=== PATIENT | male | born 1985 | race Caucasian/White ===

== ENCOUNTER 2017-05-29 19:28 | Emergency (ER) | payer OTHER ==
[~2017-05-29] VITALS: Ht 175.3 cm; Wt 114.3 kg
[~2017-05-29 19:28] MED LIST: ALPR.5 PO; BYST5TAB2 PO; DOXE50CA3 PO
[2017-05-29 19:34] VITALS: BP 161/77; PULSE 93; RESP 18; TEMP 98.4; O2SAT 99
[2017-05-29] MEDS ORDERED: TETANUS/DIPHTHERIA TOXOID ADULT 0.5 ML VIAL IM ONE (20:30)
[2017-05-29] MEDS ORDERED: CLINDAMYCIN 150 MG CAP PO ONE (20:30)
[2017-05-29] MEDS ORDERED: IBUPROFEN 800 MG TAB PO ONE (20:30)
[2017-05-29] MEDS ORDERED: CLIN300C5 PO (20:37)
--- NOTE | 2017-05-29 20:38 | PD ---
HPI Chief Complaint: Bite or Sting Time Seen by Provider: 20:08 Travel History International Travel<30 days: No Contact w/Intl Traveler<30days: No Traveled to known affect area: No History of Present Illness HPI 31 -year-old male here for evaluation of dog bite to the right upper extremity. Patient has 2 lacerations to the distal/medial aspect of the forearm and palm. Both wounds measure approximately 2 cm. He reports normal sensation and full range of motion of the wrist and hand. Bleeding well controlled. Injury occurred prior to arrival. Dog's immunizations are up-to-date. Tetanus immunization a patient unknown [facility] Past Medical History Anxiety: Yes Depression: Yes Cancer: No Cardiovascular Problems: No Diminished Hearing: No Diverticulitis: Yes Endocrine: No Gastrointestinal Disorders: Yes GERD: Yes Genitourinary: No Hypertension: Yes Musculoskeletal: No Neurologic: No Psychiatric: Yes Reproductive: No Respiratory: No Immunizations Current: Yes Tetanus Vaccination: > 5 Years Influenza Vaccination: No Past Surgical History Surgical History: No Previous Surgery Other Surgery: Yes (ENDOSCOPY/COLONOSCOPY) Social History Alcohol Use: Yes (RARELY) Tobacco Use: No Substance Use: Yes (MARIJUANA DAILY;previous) Allergies-Medications (Allergen,Severity, Reaction): Coded Allergies: amoxicillin (Unverified Allergy, Severe, Hives, 05/29/17) penicillin G (Unverified Allergy, Severe, Hives, 05/29/17) Reported Meds & Prescriptions Reported Meds & Active Scripts Active Clindamycin (Clindamycin HCl) 300 Mg Cap 300 Mg PO Q6H 10 Days Doxepin (Doxepin HCl) 50 Mg Cap 50 Mg PO BID Bystolic (Nebivolol) 5 Mg Tab 5 Mg PO DAILY Reported Xanax (Alprazolam) 0.5 Mg Tab 0.5 Mg PO Q6H PRN Review of Systems Except as stated in HPI: all other systems reviewed are Neg Physical Exam Narrative GENERAL: Alert male in mild distress SKIN: 2 lacerations to the right upper extremity length on the distal medial aspect of the forearm the other on the palm. Both measure less than 2 cm. Wound edges well approximated. No tendon or vascular injury. Patient is able to flex and extend the wrist and all fingers. Normal sensation. 2+ radial pulse. Brisk cap refill. HEAD: Normocephalic. EYES: No injection or drainage. NECK: Supple, trachea midline. MUSCULOSKELETAL: No cyanosis, or edema. 2 lacerations to the right upper extremity. See above note. Data Data Last Documented VS Vital Signs Date Time Temp Pulse Resp B/P (MAP) Pulse Ox O2 Delivery O2 Flow Rate FiO2 05/29/17 19:34 98.4 93 18 161/77 (105) 99 Orders Orders Tetanus/Diphtheria Tox Adult (Tetanus/Di (05/29/17 20:30) Clindamycin (Cleocin) (05/29/17 20:30) Ibuprofen (Motrin) (05/29/17 20:30) Ed Discharge Order (05/29/17 20:41) Splint Or Brace Apply/Monitor (05/29/17 20:41) MDM Medical Decision Making Medical Screen Exam Complete: Yes Emergency Medical Condition: Yes Differential Diagnosis Dog bite, tendon injury, vascular injury Narrative Course 31 -year-old male with 2 lacerations to the right upper extremity. No tendon or vascular injury identified. Patient has normal sensation and full range of motion. The wounds were extensively irrigated and explored. No foreign body. Wound edges are well approximated. Sterile dressings applied. Patient will be put on antibiotics and pain medication with strict return precautions and close follow-up. Wound care and risk of infection was discussed at length with patient and family. Verbalize understanding and agree to plan Diagnosis Primary Impression: Animal bite of hand Qualified Codes: S61.451A - Open bite of right hand, initial encounter Referrals: Primary Care Physician Additional Instructions: Cleansed the wounds daily with soap and water. Apply a thin layer of ointment to each wound and a clean dry dressing daily. Take the antibiotic as prescribed. Follow-up for recheck in one to 2 days. Return prior if he developed new or worsening symptoms Scripts Bacitracin Topical (Bacitracin Topical) 500 Unit/Gm Oint 1 APPLIC TOPICAL DAILY for Infection, #30 GM 0 Refills Prov: Naima Welch 05/29/17 Meloxicam (Meloxicam) 15 Mg Tab 15 MG PO DAILY for Arthritis Pain, #30 TAB 0 Refills Prov: Naima Welch 05/29/17 Clindamycin (Clindamycin) 300 Mg Cap 300 MG PO Q6H for Infection for 10 Days, #40 CAP 0 Refills Prov: Naima Welch 05/29/17 Disposition: 01 DISCHARGE HOME Condition: Stable Naima Welch May 29, 2017 20:38
[2017-05-29] MEDS ORDERED: MELO15TA20 PO (20:50)
[2017-05-29] MEDS ORDERED: BACI500O9 TOPICAL (20:50)
== END 2017-05-29 20:54 | disposition home or self-care (01) ==
LOC: PHEFT 19:28
DX: S61.451A Open bite of right hand, initial encounter (principal); I10 Essential (primary) hypertension; F12.10 Cannabis abuse, uncomplicated; W54.0XXA Bitten by dog, initial encounter; Z23 Encounter for immunization
CPT/HCPCS: 90471; 90714

== ENCOUNTER 2017-11-02 11:24 | Emergency (ER) | payer BC, OTHER ==
[~2017-11-02 11:24] MED LIST changes: +BACI500O9 TOPICAL; +LEVA750T9 PO; +MELO15TA20 PO
[2017-11-02 11:35] VITALS: BP 167/86; PULSE 100; RESP 18; TEMP 98; O2SAT 99
[2017-11-02] MEDS ORDERED: BYST5TAB2 PO (11:40)
[2017-11-02 11:55] LABS: HEMATOCRIT 45.7 % (39.0-51.0); HEMOGLOBIN 14.9 GM/DL (13.0-17.0); MEAN CELL VOLUME 89.7 FL (80.0-100.0); MEAN CORPUSCULAR HEMOGLOBIN 29.3 PG (27.0-34.0); MEAN CORPUSCULAR HGB CONC 32.7 % (32.0-36.0); MEAN PLATELET VOLUME 8.4 FL (7.0-11.0); PLATELET COUNT 278 TH/MM3 (150-450); RED CELL DISTRIBUTION WIDTH 12.4 % (11.6-17.2); WHITE BLOOD COUNT 16.6 TH/MM3 (4.0-11.0)
--- NOTE | 2017-11-02 11:58 | PD ---
HPI Chief Complaint: Chest Pain Time Seen by Provider: 11:30 Travel History International Travel<30 days: No Contact w/Intl Traveler<30days: No Traveled to known affect area: No History of Present Illness HPI This 31-year-old male says he was having palpitations and thought he was going to pass out. Has been on Xanax in the past. He does not smoke. There is no family history of heart disease. He does have a history of hypertension he does not have a history of diabetes. He is not having chest pain now. He is not short of breath. There was no radiation of the pain. He has had short bursts of palpitations. Patient does see Dr. Thomas on a regular basis and has an appointment to see him next week. PFSH Past Medical History Anxiety: Yes Depression: Yes Cancer: No Cardiovascular Problems: No Diminished Hearing: No Diverticulitis: Yes Endocrine: No Gastrointestinal Disorders: Yes GERD: Yes Genitourinary: No Hypertension: Yes Musculoskeletal: No Neurologic: No Psychiatric: Yes Reproductive: No Respiratory: No Immunizations Current: Yes Influenza Vaccination: No ?: Not Past Surgical History Genitourinary Surgery: Yes Other Surgery: Yes (ENDOSCOPY/COLONOSCOPY) Social History Alcohol Use: Yes (RARELY) Tobacco Use: No Substance Use: Yes (MARIJUANA DAILY;) Allergies-Medications (Allergen,Severity, Reaction): Coded Allergies: amoxicillin (Unverified Allergy, Severe, Hives, 11/02/17) penicillin G (Unverified Allergy, Severe, Hives, 11/02/17) Reported Meds & Prescriptions Reported Meds & Active Scripts Active Doxepin (Doxepin HCl) 50 Mg Cap 50 Mg PO BID Reported Bystolic (Nebivolol) 5 Mg Tab 5 Mg PO HS Review of Systems General / Constitutional: No: Fever, Chills Eyes: No: Diploplia, Blurred Vision HENT: No: Headaches, Vertigo Cardiovascular: Positive: Chest Pain or Discomfort, Palpitations, No: Irregular Rhythm Respiratory: No: Cough, Shortness of Breath Gastrointestinal: No: Nausea, Vomiting Genitourinary: No: Urgency, Frequency Skin: No Rash, No Itching Physical Exam Narrative GENERAL: Male SKIN: Focused skin assessment warm/dry. HEAD: Atraumatic. Normocephalic. EYES: Pupils equal and round. No scleral icterus. No injection or drainage. ENT: No nasal bleeding or discharge. Mucous membranes pink and moist. NECK: Trachea midline. No JVD. CARDIOVASCULAR: Regular rate and rhythm. No murmur appreciated. RESPIRATORY: No accessory muscle use. Clear to auscultation. Breath sounds equal bilaterally. GASTROINTESTINAL: Abdomen soft, non-tender, nondistended. Hepatic and splenic margins not palpable. MUSCULOSKELETAL: No obvious deformities. No clubbing. No cyanosis. No edema. NEUROLOGICAL: Awake and alert. No obvious cranial nerve deficits. Motor grossly within normal limits. Normal speech. PSYCHIATRIC: Appropriate mood and affect; insight and judgment normal. Data Data Last Documented VS Vital Signs Date Time Temp Pulse Resp B/P (MAP) Pulse Ox O2 Delivery O2 Flow Rate FiO2 11/02/17 12:51 77 140/68 (92) 96 Room Air 11/02/17 11:35 98.0 18 Orders Orders Complete Blood Count With Diff (11/02/17 11:31) Comprehensive Metabolic Panel (11/02/17 11:31) Troponin I (11/02/17 11:31) Magnesium (Mg) (11/02/17 11:31) Thyroid Stimulating Hormone (11/02/17 11:31) Chest, Single Ap (11/02/17 11:31) Electrocardiogram (11/02/17 ) Lorazepam Inj (Ativan Inj) (11/02/17 12:45) Labs Laboratory Tests Test 11/02/17 11:30 White Blood Count 16.6 TH/MM3 Red Blood Count 5.10 MIL/MM3 Hemoglobin 14.9 GM/DL Hematocrit 45.7 % Mean Corpuscular Volume 89.7 FL Mean Corpuscular Hemoglobin 29.3 PG Mean Corpuscular Hemoglobin Concent 32.7 % Red Cell Distribution Width 12.4 % Platelet Count 278 TH/MM3 Mean Platelet Volume 8.4 FL CBC Comment AUTO DIFF Differential Total Cells Counted 100 Neutrophils % (Manual) 46 % Lymphocytes % 45 % Monocytes % 6 % Eosinophils % 2 % Neutrophils # (Manual) 7.8 TH/MM3 Metamyelocytes 1 % Differential Comment FINAL DIFF MANUAL Platelet Estimate NORMAL Platelet Morphology Comment NORMAL Blood Urea Nitrogen 15 MG/DL Creatinine 1.10 MG/DL Random Glucose 112 MG/DL Total Protein 8.3 GM/DL Albumin 4.5 GM/DL Calcium Level 9.1 MG/DL Magnesium Level 2.5 MG/DL Alkaline Phosphatase 108 U/L Aspartate Amino Transf (AST/SGOT) 25 U/L Alanine Aminotransferase (ALT/SGPT) 52 U/L Total Bilirubin 0.4 MG/DL Sodium Level 138 MEQ/L Potassium Level 3.6 MEQ/L Chloride Level 105 MEQ/L Carbon Dioxide Level 22.9 MEQ/L Anion Gap 10 MEQ/L Estimat Glomerular Filtration Rate 78 ML/MIN Troponin I LESS THAN 0.02 NG/ML Thyroid Stimulating Hormone 3rd Gen 1.770 uIU/ML MDM Medical Decision Making Medical Screen Exam Complete: Yes Emergency Medical Condition: Yes Medical Record Reviewed: Yes Differential Diagnosis Differential includes dysrhythmia, palpitations, anxiety Narrative Course EKG shows sinus rhythm at a rate of 102. Troponin is normal. He has been observed and his heart rate is been steady at it in the 80s. I have not seen any dysrhythmia. Electrolytes are normal. He was complaining of near syncope and was given Ativan which has helped him. Certainly anxiety could be part of the issue. I have advised the patient is to follow-up with Dr. Ruiz. I will prescribe a few tablets of Ativan Diagnosis Primary Impression: Palpitations Scripts Lorazepam (Ativan) 1 Mg Tab 1 MG PO Q6H Y for ANXIETY AND/OR AGITATION, #10 TAB 0 Refills Prov: Shaan Colorado MD 11/02/17 Disposition: DISCHARGE HOME Condition: Stable Shaan Colorado MD November 02, 2017 11:58
[2017-11-02 12:03] LABS: CHLORIDE 105 MEQ/L (98-107); SODIUM (NA) 138 MEQ/L (136-145)
[2017-11-02 12:06] LABS: CALCIUM 9.1 MG/DL (8.5-10.1)
[2017-11-02 12:07] LABS: ALBUMIN 4.5 GM/DL (3.4-5.0); BICARBONATE 22.9 MEQ/L (21.0-32.0); BLOOD UREA NITROGEN 15 MG/DL (7-18); GLUCOSE,RANDOM 112 MG/DL (74-106); MAGNESIUM 2.5 MG/DL (1.5-2.5)
[2017-11-02 12:10] LABS: ALT (GPT) 52 U/L (12-78); AST (GOT) 25 U/L (15-37); GLOMERULAR FILTRATION RATE 78 ML/MIN (>89)
[2017-11-02 12:12] LABS: TOTAL BILIRUBIN ADULT 0.4 MG/DL (0.2-1.0); TOTAL PROTEIN 8.3 GM/DL (6.4-8.2)
[2017-11-02 12:13] LABS: ALKALINE PHOSPHATASE 108 U/L (45-117)
[2017-11-02 12:15] LABS: TROPONIN I LESS THAN 0.02 NG/ML (0.02-0.05)
--- NOTE | 2017-11-02 12:31 | RADRPT ---
EXAM DATE/TIME: 11/02/2017 11:47 [facility] COMPARISON: No previous studies available for comparison. INDICATIONS : Left chest pain started this morning. MEDICAL HISTORY : Diverticulitis. Hypertension SURGICAL HISTORY : None. ENCOUNTER: Initial ACUITY: 1 day PAIN SCORE: 4/10 LOCATION: Left chest FINDINGS: Lungs are hyperinflated otherwise clear. Heart and mediastinal structures are unremarkable. Osseous structures are intact. CONCLUSION: COPD without evidence of acute process. Bob Westfall MD on November 02, 2017 at 12:29 Board Certified Radiologist. This report was verified electronically.
[2017-11-02 12:45] LABS: LYMPHOCYTES 45 % (9-44); METAMYELOCYTES 1 % (0-1); MONOCYTES 6 % (0-8); NEUTROPHIL # MANUAL DIFF 7.8 TH/MM3 (1.8-7.7); POLYS (SEG NEUTROPHILS) 46 % (16-70)
[2017-11-02] MEDS ORDERED: LORazepam 2 MG/ML VIAL IV PUSH ONE (12:45)
[2017-11-02 12:51] VITALS: BP 140/68; PULSE 77; O2SAT 96
[2017-11-02] MEDS ORDERED: LORA-474 PO (13:24)
--- NOTE | 2017-11-04 12:12 | EKG ---
Date Performed: 11/02/2017 Time Performed: 11:26:52 PTAGE: 31 years EKG: SINUS TACHYCARDIA NONSPECIFIC T-WAVE ABNORMALITY ABNORMAL RHYTHM ECG INTERPRETATION BASED O N A DEFAULT AGE OF 39 YEARS NO PREVIOUS TRACING DOCTOR: Desmond Reyes Interpretating Date/Time 11/04/2017 12:03:12
== END 2017-11-02 13:42 | disposition home or self-care (01) ==
LOC: PHED 11:24
DX: R00.2 Palpitations (principal); F41.9 Anxiety disorder, unspecified; R55 Syncope and collapse; R00.0 Tachycardia, unspecified; R94.31 Abnormal electrocardiogram [ECG] [EKG]; I10 Essential (primary) hypertension; F32.9 Major depressive disorder, single episode, unspecified; K21.9 Gastro-esophageal reflux disease without esophagitis; J44.9 Chronic obstructive pulmonary disease, unspecified
CPT/HCPCS: 71045; 80053; 83735; 84443; 84484; 85007; 85027; 93005; 96374; 99285; J2060